=== PATIENT | female | born 1995 | race Caucasian/White ===

== ENCOUNTER 2016-06-06 02:33 | Outpatient (CLI) | payer OTHER ==
[~2016-06-06] VITALS: Ht 162.6 cm; Wt 68.0 kg
[~2016-06-06 02:33] MED LIST: KEFLEX500 MG PO; MACROBID100 MG PO; NAPROSYN500 MG PO; PERCOCET 5/31 TABLET PO; ZANTAC150 MG PO; ZOFRAN4 MG PO
[2016-06-06 02:47] VITALS: BP 126/80
[2016-06-06 04:35] LABS: ADD MIUA? YES; BILIRUBIN NEGATIVE; BLOOD SMALL; COLOR YELLOW ((YELLOW)); GLUCOSE (STRIP) NEGATIVE; KETONES NEGATIVE; LEUKOCYTES LARGE; NITRITE NEGATIVE; PROTEIN (STRIP) NEGATIVE; SPECIFIC GRAVITY 1.004 (1.000-1.030); UROBILINOGEN 0.2 MG/DL (0.2-1.0)
[2016-06-06 04:40] LABS: BACTERIA RARE /HPF; EPITHELIAL CELLS RARE /HPF; MUCUS NONE SEEN /LPF; RED BLOOD CELLS 0-5 /HPF (0-5); UCUL ADDED? NO
[2016-06-06] MEDS ORDERED: PRENATAL TABLE1 EAC3 PO (05:16)
== END 2016-06-06 05:25 | disposition home or self-care (01) ==
LOC: LDRP-OP 02:33 → 2WEST 02:34 → LDRP-OP 08-15 09:31
PROVIDERS: Obstetrics & Gynecology
DX: O47.03 False labor before 37 completed weeks of gestation, third trimester (principal); Z3A.34 34 weeks gestation of pregnancy
CPT/HCPCS: 59025; 81003; G0378; J7120

== ENCOUNTER 2016-07-11 17:07 | Inpatient (IN) | payer OTHER ==
[~2016-07-11] VITALS: Ht 165.1 cm; Wt 70.5 kg
[~2016-07-11 17:07] MED LIST changes: +PRENATAL TABLE1 EAC3 PO
[2016-07-11 18:08] VITALS: BP 139/81
[2016-07-11 18:17] LABS: EOSINOPHIL (%) 0.5 % (0-5); EOSINOPHIL COUNT 0.1 K/uL (0-0.3); HEMATOCRIT 38.7 % (36.0-46.0); IMMATURE GRANULOCYTE COUNT 0.2 K/uL; INSTRUMENT ABS NEUTROPHIL CT 14.3 K/uL; LYMPHOCYTE COUNT 1.5 K/uL (1.0-2.8); MCH 33.5 PG (29.0-34.0); MCHC 34.4 G/DL (30.0-36.0); MCV 97.5 FL (83-99); MEAN PLAT.VOLUME 10.5 uM^3 (9.5-12.4); MONOCYTE (%) 6.5 % (3-12); MONOCYTE COUNT 1.1 K/uL (0-0.8); NEUTROPHIL (%) 83.4 % (45-76); NEUTROPHIL COUNT 14.3 K/uL (1.8-6.4); PLATELET COUNT 198 K/uL (156-360); RBC DIS.WIDTH-CV 11.9 % (11.8-14.6); RBC DIS.WIDTH-SD 42.8 % (39-53); RED BLOOD COUNT 3.97 M/uL (3.80-5.20); WHITE BLOOD COUNT 17.2 K/uL (4.1-10.2)
[2016-07-11 19:24] VITALS: BP 133/83
[2016-07-11 20:38] VITALS: BP 131/80
[2016-07-11 22:36] VITALS: BP 133/77
[2016-07-12] VITALS (26 sets, daily range): BP systolic 110–153; BP diastolic 62–97
[2016-07-13 22:48] VITALS: BP 122/69
[2016-07-14 07:43] VITALS: BP 127/81
[2016-07-14 10:44] VITALS: BP 126/75
[2016-07-14 15:04] VITALS: BP 129/82
== END 2016-07-14 17:05 | disposition home or self-care (01) | DRG 775 ==
LOC: LDRP-OP 17:07 → 2WEST 17:10 → LDRP-OP 08-15 05:55
PROVIDERS: Obstetrics & Gynecology
DX: O70.0 First degree perineal laceration during delivery (principal); O99.354 Diseases of the nervous system complicating childbirth; F33.9 Major depressive disorder, recurrent, unspecified; Z37.0 Single live birth; Z3A.39 39 weeks gestation of pregnancy; F17.210 Nicotine dependence, cigarettes, uncomplicated; G43.909 Migraine, unspecified, not intractable, without status migrainosus; O99.334 Smoking (tobacco) complicating childbirth; O99.344 Other mental disorders complicating childbirth; F41.9 Anxiety disorder, unspecified
CPT/HCPCS: 85025; C1755; G0378; J3010

== ENCOUNTER 2017-04-17 19:26 | Emergency (ER) | payer OTHER ==
[~2017-04-17] VITALS: Ht 165.1 cm; Wt 64.2 kg
[2017-04-17 19:50] LABS: HEMATOCRIT 40.1 % (36.0-46.0); HEMOGLOBIN 14.1 G/DL (11.9-15.5); MCH 32.6 PG (29.0-34.0); MCHC 35.2 G/DL (30.0-36.0); MCV 92.8 FL (83-99); PLATELET COUNT 246 K/uL (156-360); RBC DIS.WIDTH-CV 11.5 % (11.8-14.6); RBC DIS.WIDTH-SD 39.4 % (39-53); RED BLOOD COUNT 4.32 M/uL (3.80-5.20); WHITE BLOOD COUNT 11.6 K/uL (4.1-10.2)
[2017-04-17 20:02] LABS: ALBUMIN 4.8 g/dL (3.2-4.8); CHLORIDE 107 mEq/L (99-109); POTASSIUM 4.7 mEq/L (3.7-5.4); SODIUM 140 mEq/L (136-147)
[2017-04-17 20:05] LABS: GLUCOSE 82 mg/dL (70-99); TOTAL PROTEIN 7.5 g/dL (6.4-8.3)
[2017-04-17 20:07] LABS: TOTAL BILIRUBIN 0.3 mg/dL (0.0-1.0)
[2017-04-17 20:08] LABS: ALKALINE PHOSPHATASE 70 IU/L (3-129); CREATININE 0.9 mg/dL (0.6-1.3); GFR ESTIMATE (CALCULATED) > 59 mL/min/
[2017-04-17 20:09] LABS: UREA NITROGEN (BUN) 10 mg/dL (9-23)
[2017-04-17 20:10] LABS: AST (GOT) 16 IU/L (2-34)
[2017-04-17 20:11] LABS: ALT (GPT) 14 IU/L (3-49)
[2017-04-17 20:12] LABS: LIPASE 46 U/L (1.0-51.0)
[2017-04-17 20:17] LABS: QUANTITATIVE HCG 23.8 MIU/ML
[2017-04-17 20:18] LABS: APPEARANCE CLOUDY ((CLEAR)); BILIRUBIN NEGATIVE; BLOOD NEGATIVE; COLOR YELLOW ((YELLOW)); GLUCOSE (STRIP) NEGATIVE; KETONES 5; LEUKOCYTES LARGE; NITRITE NEGATIVE; PROTEIN (STRIP) 30; SPECIFIC GRAVITY 1.029 (1.000-1.030); UROBILINOGEN 0.2 MG/DL (0.2-1.0)
[2017-04-17 20:41] LABS: SOURCE SWAB
[2017-04-17] MEDS ORDERED: ZANTAC300 MG PO (20:56)
[2017-04-17] MEDS ORDERED: ZOFRAN ODT4 MG PO (20:56)
[2017-04-17] MEDS ORDERED: PRENATAL VITAM1 EAC7 PO (20:56)
[2017-04-17 21:02] LABS: BACTERIA 1+ /HPF; EPITHELIAL CELLS 2+ /HPF; MUCUS 1+ /LPF; RED BLOOD CELLS NONE SEEN /HPF (0-5); UCUL ADDED? YES
[2017-04-17 21:46] VITALS: BP 140/79
== END 2017-04-17 21:48 | disposition home or self-care (01) ==
LOC: EME 19:26
PROVIDERS: Physician Assistant
DX: O23.511 Infections of cervix in pregnancy, first trimester (principal); Z3A.00 Weeks of gestation of pregnancy not specified; R11.0 Nausea; K21.9 Gastro-esophageal reflux disease without esophagitis; R03.0 Elevated blood-pressure reading, without diagnosis of hypertension; O99.331 Smoking (tobacco) complicating pregnancy, first trimester; F17.200 Nicotine dependence, unspecified, uncomplicated; O99.341 Other mental disorders complicating pregnancy, first trimester; F31.9 Bipolar disorder, unspecified; F32.9 Major depressive disorder, single episode, unspecified; F41.9 Anxiety disorder, unspecified
CPT/HCPCS: 80053; 81003; 83690; 84702; 85027; 87086; 87210; 87491; 87591; 99281; 99284

== ENCOUNTER 2017-06-06 08:10 | Day surgery (SDC) | payer OTHER ==
[~2017-06-06] VITALS: Ht 165.1 cm; Wt 63.6 kg
[~2017-06-06 08:10] MED LIST changes: +EXCEDRIN MIGRA1 EAC3 PO; +PRENATAL VITAM1 EAC7 PO; +TYLENOL PM EX-1 EACH PO; +ZANTAC300 MG PO; +ZOFRAN ODT4 MG PO
[2017-06-06 08:45] VITALS: BP 109/65
[2017-06-06 08:47] LABS: BASOPHIL (%) 0.2 % (0-1); EOSINOPHIL (%) 1.2 % (0-5); EOSINOPHIL COUNT 0.1 K/uL (0-0.3); HEMATOCRIT 38.2 % (36.0-46.0); HEMOGLOBIN 13.3 G/DL (11.9-15.5); IMMATURE GRANULOCYTE (%) 0.2 % (0.0-0.7); LYMPHOCYTE (%) 15.1 % (15-42); LYMPHOCYTE COUNT 1.5 K/uL (1.0-2.8); MCH 32.9 PG (29.0-34.0); MCHC 34.8 G/DL (30.0-36.0); MCV 94.6 FL (83-99); MONOCYTE (%) 5.4 % (3-12); MONOCYTE COUNT 0.5 K/uL (0-0.8); NEUTROPHIL (%) 77.9 % (45-76); NEUTROPHIL COUNT 7.7 K/uL (1.8-6.4); PLATELET COUNT 220 K/uL (156-360); RBC DIS.WIDTH-CV 11.8 % (11.8-14.6); RBC DIS.WIDTH-SD 40.7 % (39-53); RED BLOOD COUNT 4.04 M/uL (3.80-5.20); WHITE BLOOD COUNT 9.8 K/uL (4.1-10.2)
[2017-06-06] MEDS ORDERED: HYDROCODON-ACE1 EAC7 PO (10:00)
[2017-06-06] MEDS ORDERED: MOTRIN800 MG PO (10:00)
[2017-06-06 11:29] VITALS: BP 111/67
[2017-06-06 13:15] VITALS: BP 115/69
== END 2017-06-06 13:45 | disposition home or self-care (01) ==
LOC: SDC 08:10
PROVIDERS: Obstetrics & Gynecology
PROC: 10D17ZZ Extraction of Products of Conception, Retained, Via Natural or Artificial Opening (ICD-10-PCS; principal; 2017-06-06)
DX: O02.1 Missed abortion (principal)
CPT/HCPCS: 85025; 86850; 86900; 86901; 87086; 87641; 88305; J1100; J1885; J2250; J2405; J3010